=== PATIENT | male | born 1985 | race African-American/Black ===

== ENCOUNTER 2017-06-29 18:01 | Emergency (ER) | payer SELFPAY ==
[~2017-06-29] VITALS: Ht 193 cm; Wt 97.5 kg
[2017-06-29 20:45] VITALS: BP 150/89
== END 2017-06-29 20:45 | disposition home or self-care (01) ==
LOC: ED 18:01
DX: S39.012A Strain of muscle, fascia and tendon of lower back, initial encounter (principal); M41.9 Scoliosis, unspecified; X50.9XXA Other and unspecified overexertion or strenuous movements or postures, initial encounter; Y93.B9 Activity, other involving muscle strengthening exercises; Y99.8 Other external cause status; Y92.39 Other specified sports and athletic area as the place of occurrence of the external cause
CPT/HCPCS: J1885; J2270